=== PATIENT | female | born 1960 | race Hispanic/Latino ===

== ENCOUNTER 2017-05-01 12:41 | Emergency (ER) | payer OTHER ==
[~2017-05-01] VITALS: Ht 149.9 cm; Wt 86.2 kg
[~2017-05-01 12:41] MED LIST: ATENOLOL50 MG PO; CLINDAMYCIN HC300 MG PO; ESTRADIOL PO; GABAPENTIN300 MG PO; LISINOPRIL-HCT1 EAC2 PO; NEXIUM40 MG PO; REMICADE100 MG/VIA IV; TYLENOL # 31 EA PO
[2017-05-01 13:53] LABS: BASOPHILS # (AUTO) 0.1 (0.0-0.1); BASOPHILS % 0.9 % (0.0-1.0); EOSINOPHILS # (AUTO) 0.3 (0.0-0.4); EOSINOPHILS % 4.2 % (0.0-6.0); HEMATOCRIT 40.9 % (34.2-44.1); HEMOGLOBIN 14.2 g/dL (12.0-16.0); LYMPHOCYTES # (AUTO) 2.3 (1.0-3.2); LYMPHOCYTES % 33.6 % (18.0-39.1); MEAN CORPUSCULAR HEMOGLOBIN 29.8 pg (28-32); MEAN CORPUSCULAR HGB CONC 34.7 g/dL (31-35); MEAN CORPUSCULAR VOLUME 85.9 fL (81-99); MONOCYTES # (AUTO) 0.7 (0.2-0.8); MONOCYTES % 10.2 % (4.4-11.3); NEUTROPHILS # (AUTO) 3.5 (2.1-6.9); PLATELET COUNT 243 x10e3/uL (140-360); RED BLOOD COUNT 4.76 x10e6/uL (3.6-5.1); RED CELL DISTRIBUTION WIDTH 12.7 % (11.7-14.4)
[2017-05-01 14:04] LABS: INR 1.04; PARTIAL THROMBOPLASTIN TIME 31.6 seconds (23.8-35.5); PROTHROMBIN TIME 12.8 seconds (11.9-14.5)
[2017-05-01 14:13] LABS: ALANINE AMINOTRANSFERASE 71 IU/L (0-55); ALBUMIN 3.5 g/dL (3.5-5.0); ALBUMIN/GLOBULIN RATIO 0.9 (0.8-2.0); ALKALINE PHOSPHATASE 78 IU/L (40-150); ANION GAP 14.7 mmol/L (8-16); BLOOD UREA NITROGEN 14 mg/dL (7-26); BUN/CREATININE RATIO 18 (6-25); CALCIUM 9.5 mg/dL (8.4-10.2); CARBON DIOXIDE 28 mmol/L (22-29); CHLORIDE 103 mmol/L (98-107); CREATINE KINASE 68 IU/L (29-168); CREATININE, SERUM 0.76 mg/dL (0.57-1.11); EST GLOMERULAR FILTRATION RATE > 60 ML/MIN (60-); GLUCOSE 123 mg/dL (74-118); POTASSIUM 3.7 mmol/L (3.5-5.1); SODIUM 142 mmol/L (136-145)
--- NOTE | 2017-05-01 15:29 | Diagnostic Imaging Report ---
PROCEDURE: Frontal and lateral views of the chest. COMPARISON: None. INDICATIONS: CHEST PAIN FINDINGS: Lines/tubes: None. Lungs: The lungs are well inflated and clear. There is no evidence of pneumonia or pulmonary edema. Pleura: There is no pleural effusion or pneumothorax. Heart and mediastinum: Enlarged cardiac silhouette. Pulmonary vasculature is normal. Bones: No acute bony abnormality. IMPRESSION: 1. enlarged cardiac silhouette, without acute cardiopulmonary disease. Jf Farrell M.D. Dictated by: Jf Farrell M.D. on 05/01/2017 at 15:29 Electronically approved by: Jf Farrell M.D. on 05/01/2017 at 15:29
[2017-05-01 16:36] VITALS: BP 136/69
== END 2017-05-01 16:50 | disposition home or self-care (01) ==
LOC: ER 12:41
DX: R07.89 Other chest pain (principal); I51.7 Cardiomegaly
CPT/HCPCS: 36415; 71046; 80053; 82550; 82553; 84484; 85025; 85610; 85730; 99284

== ENCOUNTER 2017-08-20 20:05 | Emergency (ER) | payer OTHER ==
[~2017-08-20] VITALS: Ht 144.8 cm; Wt 84.4 kg
[2017-08-20 20:40] LABS: BASOPHILS # (AUTO) 0.1 (0.0-0.1); BASOPHILS % 0.5 % (0.0-1.0); EOSINOPHILS # (AUTO) 0.2 (0.0-0.4); EOSINOPHILS % 1.4 % (0.0-6.0); HEMATOCRIT 43.6 % (34.2-44.1); HEMOGLOBIN 15.1 g/dL (12.0-16.0); LYMPHOCYTES # (AUTO) 2.7 (1.0-3.2); LYMPHOCYTES % 24.5 % (18.0-39.1); MEAN CORPUSCULAR HEMOGLOBIN 29.8 pg (28-32); MEAN CORPUSCULAR HGB CONC 34.6 g/dL (31-35); MEAN CORPUSCULAR VOLUME 86.2 fL (81-99); MONOCYTES % 8.9 % (4.4-11.3); NEUTROPHILS % 64.2 % (38.7-80.0); PLATELET COUNT 237 x10e3/uL (140-360); RED BLOOD COUNT 5.06 x10e6/uL (3.6-5.1); RED CELL DISTRIBUTION WIDTH 13.5 % (11.7-14.4)
[2017-08-20 20:42] LABS: BILIRUBIN,URINE NEGATIVE (NEGATIVE); CLARITY,URINE CLEAR (CLEAR); COLOR,URINE YELLOW (YELLOW); KETONES,URINE NEGATIVE (NEGATIVE); LEUKOCYTE ESTERASE ,URINE NEGATIVE (NEGATIVE); NITRITE,URINE NEGATIVE (NEGATIVE); PROTEIN,URINE DIPSTICK NEGATIVE (NEGATIVE); URINE UROBILINOGEN 0.2 mg/dL (0.2 - 1)
[2017-08-20 20:47] LABS: EPITHELIAL CELLS,URINE FEW /LPF; MUCUS,URINE FEW (RARE); RBC,URINE 0-5 /HPF (0-5); WBC,URINE (MAN) 0-5 /HPF (0-5)
[2017-08-20 20:51] LABS: INR 0.97; PROTHROMBIN TIME 12.1 seconds (11.9-14.5)
[2017-08-20 20:52] LABS: PARTIAL THROMBOPLASTIN TIME 29.6 seconds (23.8-35.5)
[2017-08-20 20:59] LABS: ALANINE AMINOTRANSFERASE 61 IU/L (0-55); ALBUMIN 3.6 g/dL (3.5-5.0); ALKALINE PHOSPHATASE 95 IU/L (40-150); ANION GAP 15.1 mmol/L (8-16); BLOOD UREA NITROGEN 26 mg/dL (7-26); BUN/CREATININE RATIO 30 (6-25); CALCIUM 9.5 mg/dL (8.4-10.2); CARBON DIOXIDE 26 mmol/L (22-29); CHLORIDE 103 mmol/L (98-107); CREATINE KINASE 54 IU/L (29-168); CREATININE, SERUM 0.88 mg/dL (0.57-1.11); EST GLOMERULAR FILTRATION RATE > 60 ML/MIN (60-); GLUCOSE 111 mg/dL (74-118); MAGNESIUM 2.5 MG/DL (1.3-2.1); POTASSIUM 4.1 mmol/L (3.5-5.1); SODIUM 140 mmol/L (136-145)
[2017-08-20 21:18] LABS: THYROID STIMULATING HORMONE 2.527 uIU/mL (0.350-4.940)
--- NOTE | 2017-08-20 21:47 | Diagnostic Imaging Report ---
CHEST 2 VIEWS, Technique: CHEST 2 VIEWS Comparison: 05/01/2017 Clinical history: Palpitations DISCUSSION: Heart/mediastinum: Stable mildly enlarged cardiac silhouette and markedly tortuous or ectatic descending thoracic aorta. Lungs/pleural spaces: Central vascular congestion without overt edema. No consolidation, pleural effusion or pneumothorax. IMPRESSION: No significant interval change. Signed by: Dr Nayeli Lin MD on 08/20/2017 9:44 PM
[2017-08-20 22:36] VITALS: BP 153/75
== END 2017-08-20 22:45 | disposition home or self-care (01) ==
LOC: ER 20:05
DX: R00.2 Palpitations (principal)
CPT/HCPCS: 36415; 71046; 80053; 81001; 82550; 82553; 83735; 84443; 84484; 85025; 85610; 85730; 93005; 99284

== ENCOUNTER 2017-09-26 21:50 | Emergency (ER) | payer OTHER ==
[~2017-09-26] VITALS: Ht 144.8 cm; Wt 84.4 kg
[2017-09-26] MEDS ORDERED: KETOROLAC TROMETHAMINE 30 MG/ML VIAL IV STA (22:02)
--- NOTE | 2017-09-26 23:18 | Diagnostic Imaging Report ---
EXAMINATION: RIBS UNILAT W/CXR INDICATION: ] Pain. COMPARISON: None FINDINGS: TUBES and LINES: None. LUNGS: Lungs are well inflated. Lungs are clear. There is no evidence of pneumonia or pulmonary edema. PLEURA: No pleural effusion or pneumothorax. HEART AND MEDIASTINUM: The cardiomediastinal silhouette is unremarkable. BONES AND SOFT TISSUES: No acute osseous lesion. Soft tissues are unremarkable. UPPER ABDOMEN: No free air under the diaphragm. IMPRESSION: No acute thoracic abnormality. No evidence of rib fractures. Signed by: Dr. Antoine Childers M.D. on 09/26/2017 11:14 PM
[2017-09-26 23:50] LABS: BASOPHILS # (AUTO) 0.1 (0.0-0.1); BASOPHILS % 0.6 % (0.0-1.0); EOSINOPHILS # (AUTO) 0.2 (0.0-0.4); EOSINOPHILS % 1.6 % (0.0-6.0); HEMATOCRIT 42.3 % (34.2-44.1); HEMOGLOBIN 14.5 g/dL (12.0-16.0); LYMPHOCYTES # (AUTO) 2.7 (1.0-3.2); LYMPHOCYTES % 27.2 % (18.0-39.1); MEAN CORPUSCULAR HEMOGLOBIN 30.6 pg (28-32); MEAN CORPUSCULAR HGB CONC 34.3 g/dL (31-35); MEAN CORPUSCULAR VOLUME 89.2 fL (81-99); MONOCYTES # (AUTO) 0.9 (0.2-0.8); MONOCYTES % 8.8 % (4.4-11.3); NEUTROPHILS % 61.4 % (38.7-80.0); PLATELET COUNT 210 x10e3/uL (140-360); RED BLOOD COUNT 4.74 x10e6/uL (3.6-5.1)
[2017-09-27 00:09] LABS: ALANINE AMINOTRANSFERASE 41 IU/L (0-55); ALBUMIN 3.1 g/dL (3.5-5.0); ALBUMIN/GLOBULIN RATIO 0.9 (0.8-2.0); ALKALINE PHOSPHATASE 96 IU/L (40-150); ANION GAP 13.5 mmol/L (8-16); BLOOD UREA NITROGEN 21 mg/dL (7-26); BUN/CREATININE RATIO 27 (6-25); CALCIUM 9.2 mg/dL (8.4-10.2); CARBON DIOXIDE 27 mmol/L (22-29); CHLORIDE 102 mmol/L (98-107); CREATINE KINASE 36 IU/L (29-168); CREATININE, SERUM 0.78 mg/dL (0.57-1.11); EST GLOMERULAR FILTRATION RATE > 60 ML/MIN (60-); GLUCOSE 104 mg/dL (74-118); POTASSIUM 3.5 mmol/L (3.5-5.1); SODIUM 139 mmol/L (136-145)
[2017-09-27 00:37] VITALS: BP 160/105
== END 2017-09-27 00:41 | disposition home or self-care (01) ==
LOC: ER 21:50
DX: R07.89 Other chest pain (principal); I10 Essential (primary) hypertension; E78.5 Hyperlipidemia, unspecified; K21.9 Gastro-esophageal reflux disease without esophagitis; G89.29 Other chronic pain; F17.210 Nicotine dependence, cigarettes, uncomplicated
CPT/HCPCS: 36415; 71101; 80053; 82550; 82553; 84484; 85025; 85379; 93005; 99284; J1885

== ENCOUNTER 2018-07-14 21:31 | Observation (INO) | payer OTHER ==
[~2018-07-14] VITALS: Ht 147.3 cm; Wt 84.8 kg
--- OUTSIDE RECORDS SUMMARY | 2018-07-14 21:33 | XMS REPORT | Clinical Summary ---
Author Author [facility] Organization [facility] Address Unknown Phone Unavailable Care Team Providers Care Master Dyer Name Role Phone Brooke Muse MD PCP Allergies Comments Active Allergy Reactions Severity Noted Date Acetaminophen-Codeine GI Low 12/15/2017 Intolerance Medications End Date Status Medication Sig Dispensed Refills Start Date Active metFORMIN (GLUCOPHAGE) Take 500 mg 0 500 mg tablet by mouth 2 (two) times a day with meals. Active lisinopril-hydrochlorothi Take 1 tablet 0 azide by mouth (PRINZIDE,ZESTORETIC) daily. 20-12.5 mg per tablet Active folic acid (FOLVITE) 1 MG Take 1 mg by 0 tablet mouth daily. Active leflunomide (ARAVA) 10 MG Take 10 mg by 0 tablet mouth daily. Active pravastatin (PRAVACHOL) Take 40 mg by 0 40 MG tablet mouth daily. Active isosorbide dinitrate Take 15 mg by 0 (ISORDIL) 30 MG tablet mouth daily. Active ezetimibe (ZETIA) 10 mg Take 10 mg by 0 tablet mouth daily. Active pantoprazole (PROTONIX) Take 40 mg by 0 40 MG EC tablet mouth daily. Active propranolol (INDERAL) 80 Take 80 mg by 0 MG tablet mouth daily. 12/16/2017 Discontinued lisinopril-hydrochlorothi Take 1 tablet 0 azide by mouth (PRINZIDE,ZESTORETIC) nightly. 20-25 mg per tablet 12/16/2017 Discontinued metoprolol tartrate Take 25 mg by 0 (LOPRESSOR) 25 mg tablet mouth daily. 01/15/2018 metoprolol tartrate Take 0.5 30 tablet 0 (LOPRESSOR) 25 mg tablet tablets (12.5 8 mg total) by mouth 2 (two) times a day for 30 days. 01/16/2018 aspirin (ECOTRIN) 81 MG Take 1 tablet 30 tablet 0 enteric coated tablet (81 mg total) 8 by mouth daily for 30 days. Active Problems Problem Noted Date CAD (coronary artery disease) 12/15/2017 Encounters Care Team Description Date Type Specialty Cece Naidu MD Cv left heart cath w lv gram cors [12292 (CPT)] 12/15/2017 Surgery Procedural Cardiology Cece Naidu MD Preop testing 12/15/2017 Hospital Radiology Encounter Cece Naidu MD Al-Lahiq, Maha, MD Coronary artery disease involving [place] heart with angina pectoris, unspecified vessel or lesion type (HCC) (Primary Dx) 12/15/2017 Hospital Intensive Care - Encounter 12/16/2017 after 07/13/2017 Family History Medical History Relation Name Comments Heart disease Father Hyperlipidemia Father Hypertension Father Heart disease Mother Hyperlipidemia Mother Hypertension Mother Relation Name Status Comments Father Mother Social History Date Tobacco Use Types Packs/Day Years Used Current Every Day Smoker Cigarettes 0.5 35 Smokeless Tobacco: Never Used Tobacco Cessation: Ready to Quit: No; Counseling Given: Yes Alcohol Use Drinks/Week oz/Week Comments No Sex Assigned at Date Recorded Not on file Industry Job Start Date Occupation Not on file Not on file Not on file Travel End Travel History Travel Start No recent travel history available. Last Filed Vital Signs Time Taken Vital Sign Reading 12/16/2017 8:27 AM HEALTH PLAN MANAGER Blood Pressure 146/65 12/16/2017 8:27 AM HEALTH PLAN MANAGER Pulse 68 12/16/2017 4:00 AM HEALTH PLAN MANAGER Temperature 37.1 C (98.8 F) 12/16/2017 8:00 AM HEALTH PLAN MANAGER Respiratory Rate 19 12/16/2017 8:00 AM HEALTH PLAN MANAGER Oxygen Saturation 99% - Inhaled Oxygen - Concentration 12/15/2017 5:45 PM HEALTH PLAN MANAGER Weight 86.2 kg (190 lb) 12/15/2017 5:45 PM HEALTH PLAN MANAGER Height 147.3 cm (4' 10") 12/15/2017 5:45 PM HEALTH PLAN MANAGER Body Mass Index 39.71 Plan of Treatment Health Maintenance Due Date Last Done Comments BREAST CANCER SCREENING 2012 COLON CANCER SCREENING 2012 SHINGLES VACCINES (#1) 2012 INFLUENZA VACCINE 09/10/2018 Procedures Comments Procedure Name Priority Date/Time Associated Diagnosis CV SELECTIVE CORONARY Routine 12/15/2017 ANGIOGRAPHY 2:20 PM HEALTH PLAN MANAGER PARTIAL THROMBOPLASTIN STAT 12/15/2017 TIME (PTT) 11:26 AM HEALTH PLAN MANAGER PROTHROMBIN TIME WITH INR STAT 12/15/2017 11:26 AM HEALTH PLAN MANAGER XR CHEST 2 VW Routine 12/15/2017 Preop testing 10:55 AM HEALTH PLAN MANAGER ECG PRE/POST OP STAT 12/15/2017 10:41 AM HEALTH PLAN MANAGER ESTIMATED GFR STAT 12/15/2017 10:40 AM HEALTH PLAN MANAGER BASIC METABOLIC PANEL STAT 12/15/2017 10:40 AM HEALTH PLAN MANAGER HC COMPLETE BLD COUNT STAT 12/15/2017 W/AUTO DIFF 10:40 AM HEALTH PLAN MANAGER after 07/13/2017 Results * Cv labeler procedure (12/15/2017 2:20 PM HEALTH PLAN MANAGER) Specimen Narrative Performed At [facility] CARDIAC CATHETERIZATION NOTE INDICATION: 1.Chest pain. 2.Abnormal myocardial perfusion scan. PROCEDURES PERFORMED: 1.Left heart catheterization with coronary angiogram. 2.Moderate sedation. DESCRIPTION OF THE PROCEDURE: After obtaining informed consent, both the groins were prepped and draped in sterile fashion technique.Radial artery also was accessed using Jaime test. Initially, we started the accessing the right radial artery using 5 and 6-Thai slender sheath.The patient was very sensitive in the skin with each movement into the manipulation of the catheter to the right radial wrist.She was complaining of pain.We went with the [place]ess 4.0 catheter, it was not adequate to visualize in the left main.Then, we tried a JL4.0 catheter.For the right, we used [place] as well as the JR4.0.Finally, given her sensitivity, we decided to switch to a femoral approach.Next, we started with the right common femoral artery after lidocaine injection.Then, we used 18 ____ needle.Then, we went with a 5-Thai sheath.We went then with a JL5.0 catheter.The left main was cannulated.Multiple views were obtained.For the right, we used a 3DRC catheter.The right coronary artery was small, but cannulated. FINDINGS: 1.Left main has luminal irregularity, divides to LAD, ramus and circumflex. 2.The LAD has a mid 40% stenosis.The rest of the LAD has luminal irregularities. 3.Ramus has luminal irregularities. 4.Circumflex gives rise to an obtuse marginal. 5.Before giving rise to obtuse marginal mid also has 40% stenosis. 6.The RCA is right dominant, has rxqw-br-nqqmgpud atherosclerosis and then in the distal has a 50% long stenosis.The RCA gives rise to PDA and PLV, both of them have luminal irregularities, so small, and the PDA seems to be small and with luminal irregularities. CONCLUSIONS: 1.Moderate atherosclerosis in the distal RCA, circumflex and LAD. 2.Mildly elevated left ventricular end-diastolic pressure 19. 3.No gradient across the aortic valve. RECOMMENDATIONS: 1.We will continue guideline-directed medical therapy. 2.Hemostasis will be obtained using manual pressure. Thank you for allowing me to participate in the care of this patient. Performing Organization Address [facility] Phone Number [facility] [address] [place] [address] * Partial thromboplastin time, activated (12/15/2017 11:26 AM HEALTH PLAN MANAGER) PTT 33.7 23.0 - 36.0 sec [facility] Comment: DEPARTMENT OF PTT therapeutic range for PATHOLOGY AND unfractionated heparin is GENOMIC 61.0-112.0 seconds which MEDICINE corresponds to Anti-Xa 0.3-0.7 U/ml. Specimen Blood Performing Organization Address [facility] Phone Number [address] [place] [address] PATHOLOGY AND GENOMIC MEDICINE * Prothrombin time with INR (12/15/2017 11:26 AM HEALTH PLAN MANAGER) Prothrombin 12.6 11.5 - 14.5 sec [facility] time DEPARTMENT OF PATHOLOGY AND GENOMIC MEDICINE INR 1.0 [facility] Comment: DEPARTMENT OF The International Normalized PATHOLOGY AND Ratio (INR) is a therapeutic GENOMIC monitoring tool for patients MEDICINE who are stable on oral anticoagulant therapy. An INR of 2.0-3.0 is suggested for deep vein thrombosis/pulmonary embolism. Specimen Blood Performing Organization Address [facility] Phone Number [facility] DEPARTMENT [address] [place] [address] PATHOLOGY AND GENOMIC MEDICINE * XR Chest 2 Vw (12/15/2017 10:55 AM HEALTH PLAN MANAGER) Specimen Narrative Performed At EXAMINATION:XR CHEST 2 VW [facility] CLINICAL HISTORY:Z01.818 Encounter for other preprocedural examination, preop COMPARISON:None. IMPRESSION: 1.Lungs are clear. 2.Mediastinal contours and cardiac silhouette are unremarkable. 3.No acute osseous abnormality. [id number] Procedure Note Hm Interface, Radiology Results Incoming - 12/15/2017 10:59 AM HEALTH PLAN MANAGER EXAMINATION: XR CHEST 2 VW CLINICAL HISTORY: Z01.818 Encounter for other preprocedural examination, preop COMPARISON: None. IMPRESSION: 1. Lungs are clear. 2. Mediastinal contours and cardiac silhouette are unremarkable. 3. No acute osseous abnormality. [id number] Performing Organization Address [facility] Phone Number [facility] [address] [place] [address] * ECG Pre/Post Op (12/15/2017 10:41 AM HEALTH PLAN MANAGER) Ventricular 59 [facility] rate Atrial rate 59 [facility] MN interval 146 [facility] QRSD interval 88 [facility] QT interval 444 [facility] QTC interval 439 [facility] P axis 1 14 [facility] QRS axis 1 -22 [facility] T wave axis 42 [facility] EKG impression Sinus bradycardia-Otherwise [facility] normal ECG-No previous ECGs available- Specimen Performing Organization Address [facility] Phone Number [facility] MUSE [address] [place] [address] * Estimated GFR (12/15/2017 10:40 AM HEALTH PLAN MANAGER) Estimated GFR >=90 mL/min/1.73 m2 [facility] Comment: DEPARTMENT OF C[employer]goryUnitsInte PATHOLOGY AND rpretation GENOMIC G1 MEDICINE >=90 Normal or high G2 60-89Mildly decreased E1h95-75 Mildly to moderately decreased O3t65-96 Moderately to severely decreased G4 15-29Severely decreased G5 <15Kidney failure The eGFR was calculated using the Chronic Kidney Disease Epidemiology Collaboration (CKD-EPI) equation. Interpretation is based on recommendations of the National Kidney Foundation-Kidney Disease Outcomes Quality Initiative (NKF-KDOQI) published in 2014. Specimen Plasma specimen Performing Organization Address City/[facility]/Zipcode Phone Number [facility] [address] [address] [phone] PATHOLOGY [facility] * CBC with platelet and differential (12/15/2017 10:40 AM HEALTH PLAN MANAGER) WBC 7.19 4.50 - 11.00 k/uL [facility] DEPARTMENT OF PATHOLOGY AND GENOMIC MEDICINE RBC 4.95 4.20 - 5.50 m/uL [facility] OF PATHOLOGY AND GENOMIC MEDICINE HGB 15.1 12.0 - 16.0 g/dL [facility] DEPARTMENT OF PATHOLOGY AND GENOMIC MEDICINE HCT 44.2 37.0 - 47.0 % [facility] DEPARTMENT OF PATHOLOGY AND GENOMIC MEDICINE MCV 89.3 82.0 - 100.0 fL [facility] DEPARTMENT OF PATHOLOGY AND GENOMIC MEDICINE MCH 30.5 27.0 - 34.0 pg [facility] DEPARTMENT OF PATHOLOGY AND GENOMIC MEDICINE MCHC 34.2 31.0 - 37.0 g/dL [facility] DEPARTMENT OF PATHOLOGY AND GENOMIC MEDICINE RDW - SD 43.0 37.0 - 55.0 fL [facility] DEPARTMENT OF PATHOLOGY AND GENOMIC MEDICINE MPV 11.7 8.8 - 13.2 fL [facility] DEPARTMENT OF PATHOLOGY AND GENOMIC MEDICINE Platelet count 223 150 - 400 k/uL [facility] DEPARTMENT OF PATHOLOGY AND GENOMIC MEDICINE Nucleated RBC 0.00 /100 WBC [facility] DEPARTMENT OF PATHOLOGY AND GENOMIC MEDICINE Neutrophils 55.2 39.0 - 69.0 % [facility] DEPARTMENT OF PATHOLOGY AND GENOMIC MEDICINE Lymphocytes 32.1 25.0 - 45.0 % [facility] DEPARTMENT OF PATHOLOGY AND GENOMIC MEDICINE Monocytes 7.9 0.0 - 10.0 % [facility] DEPARTMENT OF PATHOLOGY AND GENOMIC MEDICINE Eosinophils 3.5 0.0 - 5.0 % [facility] DEPARTMENT OF PATHOLOGY AND GENOMIC MEDICINE Basophils 1.0 0.0 - 1.0 % [facility] DEPARTMENT OF PATHOLOGY AND GENOMIC MEDICINE Specimen Blood Performing Organization Address City/[facility]/Zipcode Phone Number [place] [address] [place] [address] PATHOLOGY AND [facility] * Basic metabolic panel (12/15/2017 10:40 AM HEALTH PLAN MANAGER) Pathologist [facility] Sodium 141 135 - 148 mEq/L [facility] DEPARTMENT OF PATHOLOGY AND GENOMIC MEDICINE Potassium 4.4 3.5 - 5.0 mEq/L [facility] DEPARTMENT OF PATHOLOGY AND GENOMIC MEDICINE Chloride 102 98 - 112 mEq/L [facility] DEPARTMENT OF PATHOLOGY AND GENOMIC MEDICINE CO2 28 24 - 31 mEq/L [facility] DEPARTMENT OF PATHOLOGY AND GENOMIC MEDICINE Anion gap 11@ANIO 7 - 15 mEq/L [facility] DEPARTMENT OF PATHOLOGY AND GENOMIC MEDICINE BUN 14 6 - 20 mg/dL [facility] DEPARTMENT OF PATHOLOGY AND GENOMIC MEDICINE Creatinine 0.70 0.50 - 0.90 mg/dL [facility] DEPARTMENT OF PATHOLOGY AND GENOMIC MEDICINE Glucose 109 (H) 65 - 99 mg/dL [facility] DEPARTMENT OF PATHOLOGY AND GENOMIC MEDICINE Calcium 9.9 8.3 - 10.2 mg/dL [facility] DEPARTMENT OF PATHOLOGY AND GENOMIC MEDICINE Specimen Plasma specimen Performing Organization Address City/State/Zipcode Phone Number [facility] [place] [address] [place] [address] PATHOLOGY AND GENOMIC MEDICINE after 07/13/2017 Insurance Type Payer Benefit Subscriber ID Effective Phone Address Plan / Dates Group HMO [employer] MEDICAID [employer] xxxxxxxxx 2008- COMM STAR+ Present [place] Advance Directives Patient has advance care planning documents on file. For more information, xuan manzano contact: Geovany Gutierrez [address] [facility] [place] [address]
[2018-07-14] MEDS ORDERED: ASPIRIN 81 MG CHEW TAB PO ONE (22:15)
[2018-07-14 22:39] LABS: BASOPHILS # (AUTO) 0.1 (0.0-0.1); EOSINOPHILS # (AUTO) 0.3 (0.0-0.4); EOSINOPHILS % 3.6 % (0.0-6.0); HEMOGLOBIN 14.7 g/dL (12.0-16.0); LYMPHOCYTES # (AUTO) 2.4 (1.0-3.2); LYMPHOCYTES % 34.1 % (18.0-39.1); MEAN CORPUSCULAR HEMOGLOBIN 31.1 pg (28-32); MEAN CORPUSCULAR VOLUME 88.8 fL (81-99); MONOCYTES # (AUTO) 0.8 (0.2-0.8); MONOCYTES % 10.8 % (4.4-11.3); NEUTROPHILS # (AUTO) 3.5 (2.1-6.9); NEUTROPHILS % 50.2 % (38.7-80.0); PLATELET COUNT 185 x10e3/uL (140-360); RED BLOOD COUNT 4.73 x10e6/uL (3.6-5.1); RED CELL DISTRIBUTION WIDTH 13.2 % (11.7-14.4)
[2018-07-14 22:53] LABS: BILIRUBIN,URINE NEGATIVE (NEGATIVE); CLARITY,URINE CLOUDY (CLEAR); COLOR,URINE YELLOW (YELLOW); KETONES,URINE NEGATIVE (NEGATIVE); LEUKOCYTE ESTERASE ,URINE TRACE (NEGATIVE); NITRITE,URINE NEGATIVE (NEGATIVE); PROTEIN,URINE DIPSTICK NEGATIVE (NEGATIVE); URINE UROBILINOGEN 0.2 mg/dL (0.2 - 1)
[2018-07-14 23:09] LABS: ALANINE AMINOTRANSFERASE 96 IU/L (0-55); ALBUMIN 3.6 g/dL (3.5-5.0); ALKALINE PHOSPHATASE 123 IU/L (40-150); ANION GAP 14.6 mmol/L (8-16); BLOOD UREA NITROGEN 13 mg/dL (7-26); BUN/CREATININE RATIO 15 (6-25); CALCIUM 9.6 mg/dL (8.4-10.2); CARBON DIOXIDE 25 mmol/L (22-29); CHLORIDE 103 mmol/L (98-107); CREATINE KINASE 103 IU/L (29-168); CREATININE, SERUM 0.85 mg/dL (0.57-1.11); EST GLOMERULAR FILTRATION RATE > 60 ML/MIN (60-); GLUCOSE 91 mg/dL (74-118); POTASSIUM 3.6 mmol/L (3.5-5.1); SODIUM 139 mmol/L (136-145)
[2018-07-14 23:11] LABS: BACTERIA,URINE FEW /HPF; EPITHELIAL CELLS,URINE FEW /LPF; RBC,URINE 0-5 /HPF (0-5)
--- NOTE | 2018-07-14 23:45 | Diagnostic Imaging Report ---
EXAMINATION: CHEST SINGLE (PORTABLE) INDICATION: ^CHEST PAIN ^[id number] ^2315 ^Y COMPARISON: 09/26/2017 FINDINGS: AP view TUBES and LINES: None. LUNGS: Limited by body habitus and low lung volumes. There is no evidence of pneumonia or pulmonary edema. PLEURA: No pleural effusion or pneumothorax. HEART AND MEDIASTINUM: The cardiomediastinal silhouette is enlarged. BONES AND SOFT TISSUES: No acute osseous lesion. Soft tissues are unremarkable. UPPER ABDOMEN: No free air under the diaphragm. IMPRESSION: No acute thoracic abnormality. Enlarged cardiomediastinal silhouette on this AP view. Signed by: Dr. Yusef Shea MD on 07/14/2018 11:42 PM
[2018-07-15] VITALS (7 sets, daily range): BP systolic 133–165; BP diastolic 70–82
[2018-07-15] MEDS ORDERED: HYDRALAZINE HCL 20 MG/ML VIAL IV PRN (00:45)
[2018-07-15] MEDS ORDERED: SODIUM CHLORIDE FLUSH 10 ML SYR INJ PRN (00:45)
--- OUTSIDE RECORDS SUMMARY | 2018-07-15 00:58 | XMS REPORT | Clinical Summary ---
Author Author [facility] Address Unknown Phone Unavailable Care Team Providers Care Supervisor Graphite Name Role Phone Brooke Muse MD PCP [...] left heart cath w lv gram cors [[id number] (CPT)] 12/15/2017 Surgery Procedural Cardiology Cece Naidu MD Preop testing 12/15/2017 Hospital Radiology Encounter Cece Naidu MD Al-Lahiq, Maha, MD Coronary artery disease involving [place] heart with angina pectoris, unspecified vessel or lesion type (HCC) (Primary Dx) 12/15/2017 Hospital Intensive Care - Encounter 12/16/2017 after 07/14/2017 Family History Medical History Relation Name Comments [...] Taken Vital Sign Reading 12/16/2017 8:27 AM BUILDING RENTAL SUPERINTENDENT Blood Pressure 146/65 12/16/2017 8:27 AM BUILDING RENTAL SUPERINTENDENT Pulse 68 12/16/2017 4:00 AM BUILDING RENTAL SUPERINTENDENT Temperature 37.1 C (98.8 F) 12/16/2017 8:00 AM BUILDING RENTAL SUPERINTENDENT Respiratory Rate 19 12/16/2017 8:00 AM BUILDING RENTAL SUPERINTENDENT Oxygen Saturation 99% - Inhaled Oxygen - Concentration 12/15/2017 5:45 PM BUILDING RENTAL SUPERINTENDENT Weight 86.2 kg (190 lb) 12/15/2017 5:45 PM BUILDING RENTAL SUPERINTENDENT Height 147.3 cm (4' 10") 12/15/2017 5:45 PM BUILDING RENTAL SUPERINTENDENT Body Mass Index 39.71 Plan of Treatment Health Maintenance Due Date Last Done Comments BREAST CANCER SCREENING 2012 COLON CANCER SCREENING 2012 SHINGLES VACCINES (#1) 2012 INFLUENZA VACCINE 09/10/2018 Procedures Comments Procedure Name Priority Date/Time Associated Diagnosis CV SELECTIVE CORONARY Routine 12/15/2017 ANGIOGRAPHY 2:20 PM BUILDING RENTAL SUPERINTENDENT PARTIAL THROMBOPLASTIN STAT 12/15/2017 TIME (PTT) 11:26 AM BUILDING RENTAL SUPERINTENDENT PROTHROMBIN TIME WITH INR STAT 12/15/2017 11:26 AM BUILDING RENTAL SUPERINTENDENT XR CHEST 2 VW Routine 12/15/2017 Preop testing 10:55 AM BUILDING RENTAL SUPERINTENDENT ECG PRE/POST OP STAT 12/15/2017 10:41 AM BUILDING RENTAL SUPERINTENDENT ESTIMATED GFR STAT 12/15/2017 10:40 AM BUILDING RENTAL SUPERINTENDENT BASIC METABOLIC PANEL STAT 12/15/2017 10:40 AM BUILDING RENTAL SUPERINTENDENT HC COMPLETE BLD COUNT STAT 12/15/2017 W/AUTO DIFF 10:40 AM BUILDING RENTAL SUPERINTENDENT after 07/14/2017 Results * Cv laborer powerhouse procedure (12/15/2017 2:20 PM BUILDING RENTAL SUPERINTENDENT) Specimen Narrative Performed At [facility] CARDIAC CATHETERIZATION NOTE INDICATION: 1.Chest pain. 2.Abnormal myocardial perfusion scan. PROCEDURES PERFORMED: 1.Left heart catheterization with coronary angiogram. 2.Moderate sedation. DESCRIPTION OF THE PROCEDURE: After obtaining informed consent, both the groins were prepped and draped in sterile fashion technique.Radial artery also was accessed using Jaime test. Initially, we started the accessing the right radial artery using 5 and 6-Persian slender sheath.The patient was very sensitive in the skin with each movement into the manipulation of the catheter to the right radial wrist.She was complaining of pain.We went with the [place] 4.0 catheter, it was not adequate to visualize in the left main.Then, we tried a JL4.0 catheter.For the right, we used [place] as well as the JR4.0.Finally, given her sensitivity, we decided to switch to a femoral approach.Next, we started with the right common femoral artery after lidocaine injection.Then, we used 18 ____ needle.Then, we went with a 5-Persian sheath.We went then with a JL5.0 catheter.The [...] stenosis. 6.The RCA is right dominant, has [id number] atherosclerosis and then in the distal has [...] this patient. Performing Organization Address [facility] Phone Number [facility] [address] [place] [address] * Partial thromboplastin time, activated (12/15/2017 11:26 AM BUILDING RENTAL SUPERINTENDENT) PTT 33.7 23.0 - 36.0 sec [facility] Comment: DEPARTMENT OF PTT therapeutic range for PATHOLOGY AND unfractionated heparin is GENOMIC 61.0-112.0 seconds which MEDICINE corresponds to Anti-Xa 0.3-0.7 U/ml. Specimen Blood Performing Organization Address [facility] Phone Number [address] [place] [address] PATHOLOGY AND GENOMIC MEDICINE * Prothrombin time with INR (12/15/2017 11:26 AM BUILDING RENTAL SUPERINTENDENT) Prothrombin 12.6 11.5 - 14.5 sec [facility] time DEPARTMENT OF PATHOLOGY AND GENOMIC MEDICINE INR 1.0 [facility] Comment: DEPARTMENT OF The International Normalized PATHOLOGY AND Ratio (INR) is a therapeutic GENOMIC monitoring tool for patients MEDICINE who are stable on oral anticoagulant therapy. An INR of 2.0-3.0 is suggested for deep vein thrombosis/pulmonary embolism. Specimen Blood Performing Organization Address [facility] Phone Number [facility] DEPARTMENT [address] [place] [address] PATHOLOGY AND GENOMIC MEDICINE * XR Chest 2 Vw (12/15/2017 10:55 AM BUILDING RENTAL SUPERINTENDENT) Specimen Narrative Performed At EXAMINATION:XR CHEST 2 VW [facility] CLINICAL HISTORY:Z01.818 Encounter for other preprocedural examination, preop COMPARISON:None. IMPRESSION: 1.Lungs are clear. 2.Mediastinal contours and cardiac silhouette are unremarkable. 3.No acute osseous abnormality. [id number] Procedure Note Hm Interface, Radiology Results Incoming - 12/15/2017 10:59 AM BUILDING RENTAL SUPERINTENDENT EXAMINATION: XR CHEST 2 VW CLINICAL HISTORY: Z01.818 Encounter for other preprocedural examination, preop COMPARISON: None. IMPRESSION: 1. Lungs are clear. 2. Mediastinal contours and cardiac silhouette are unremarkable. 3. No acute osseous abnormality. [id number] Performing Organization Address [facility] Phone Number [facility] [address] [place] [address] * ECG Pre/Post Op (12/15/2017 10:41 AM BUILDING RENTAL SUPERINTENDENT) Ventricular 59 [facility] rate Atrial rate 59 [facility] NJ interval 146 [facility] QRSD interval 88 [facility] QT interval 444 [facility] QTC interval 439 [facility] P axis 1 14 [facility] QRS axis 1 -22 [facility] T wave axis 42 [facility] EKG impression Sinus bradycardia-Otherwise [facility] normal ECG-No previous ECGs available- Specimen Performing Organization Address [facility] Phone Number [facility] MUSE [address] [place] [address] * Estimated GFR (12/15/2017 10:40 AM BUILDING RENTAL SUPERINTENDENT) Estimated GFR >=90 mL/min/1.73 m2 [facility] Comment: DEPARTMENT OF CatergoryUnitsInte PATHOLOGY AND rpretation GENOMIC G1 MEDICINE >=90 Normal or high G2 60-89Mildly decreased Q7u05-17 Mildly to moderately decreased [id number] Moderately to severely decreased G4 15-29Severely decreased G5 <15Kidney failure The eGFR was calculated using the Chronic Kidney Disease Epidemiology Collaboration (CKD-EPI) equation. Interpretation is based on recommendations of the National Kidney Foundation-Kidney Disease Outcomes Quality Initiative (NKF-KDOQI) published in 2014. Specimen Plasma specimen Performing Organization Address City/[facility]/Zipcode Phone Number [facility] [address] [place] [place] [id number] PATHOLOGY [facility] * CBC with platelet and differential (12/15/2017 10:40 AM BUILDING RENTAL SUPERINTENDENT) WBC 7.19 4.50 - 11.00 k/uL [facility] DEPARTMENT OF PATHOLOGY AND GENOMIC MEDICINE RBC 4.95 4.20 - 5.50 m/uL [facility] OF PATHOLOGY AND GENOMIC MEDICINE HGB 15.1 12.0 - 16.0 g/dL [facility] DEPARTMENT OF PATHOLOGY AND GENOMIC MEDICINE HCT 44.2 37.0 - 47.0 % [facility] DEPARTMENT OF PATHOLOGY AND GENOMIC MEDICINE MCV 89.3 82.0 - 100.0 fL [facility] DEPARTMENT OF PATHOLOGY AND GENOMIC MEDICINE MCH 30.5 27.0 - 34.0 pg [facility] DEPARTMENT OF PATHOLOGY AND GENOMIC MEDICINE MCHC 34.2 31.0 - 37.0 g/dL [facility] DEPARTMENT OF PATHOLOGY AND GENOMIC MEDICINE RDW - SD 43.0 37.0 - 55.0 fL [facility] DEPARTMENT OF PATHOLOGY AND GENOMIC MEDICINE MPV 11.7 8.8 - 13.2 fL [facility] DEPARTMENT OF PATHOLOGY AND GENOMIC MEDICINE Platelet count 223 150 - 400 k/uL [facility] DEPARTMENT OF PATHOLOGY AND GENOMIC MEDICINE Nucleated RBC 0.00 /100 WBC [facility] DEPARTMENT OF PATHOLOGY AND GENOMIC MEDICINE Neutrophils 55.2 39.0 - 69.0 % [facility] DEPARTMENT OF PATHOLOGY AND GENOMIC MEDICINE Lymphocytes 32.1 25.0 - 45.0 % [facility] DEPARTMENT OF PATHOLOGY AND GENOMIC MEDICINE Monocytes 7.9 0.0 - 10.0 % [facility] DEPARTMENT OF PATHOLOGY AND GENOMIC MEDICINE Eosinophils 3.5 0.0 - 5.0 % [facility] DEPARTMENT OF PATHOLOGY AND GENOMIC MEDICINE Basophils 1.0 0.0 - 1.0 % [facility] DEPARTMENT OF PATHOLOGY AND GENOMIC MEDICINE Specimen Blood Performing Organization Address City/[facility]/Zipcode Phone Number [place] [address] [place] [address] PATHOLOGY AND [facility] * Basic metabolic panel (12/15/2017 10:40 AM BUILDING RENTAL SUPERINTENDENT) Pathologist [facility] Sodium 141 135 - 148 mEq/L [facility] DEPARTMENT OF PATHOLOGY AND GENOMIC MEDICINE Potassium 4.4 3.5 - 5.0 mEq/L [facility] DEPARTMENT OF PATHOLOGY AND GENOMIC MEDICINE Chloride 102 98 - 112 mEq/L [facility] DEPARTMENT OF PATHOLOGY AND GENOMIC MEDICINE CO2 28 24 - 31 mEq/L [facility] DEPARTMENT OF PATHOLOGY AND GENOMIC MEDICINE Anion gap 11@ANIO 7 - 15 mEq/L [facility] DEPARTMENT OF PATHOLOGY AND GENOMIC MEDICINE BUN 14 6 - 20 mg/dL [facility] DEPARTMENT OF PATHOLOGY AND GENOMIC MEDICINE Creatinine 0.70 0.50 - 0.90 mg/dL [facility] DEPARTMENT OF PATHOLOGY AND GENOMIC MEDICINE Glucose 109 (H) 65 - 99 mg/dL [facility] DEPARTMENT OF PATHOLOGY AND GENOMIC MEDICINE Calcium 9.9 8.3 - 10.2 mg/dL [facility] DEPARTMENT OF PATHOLOGY AND GENOMIC MEDICINE Specimen Plasma specimen Performing Organization Address City/State/Zipcode Phone Number [facility] [place] [address] [place] [address] PATHOLOGY AND GENOMIC MEDICINE after 07/14/2017 Insurance Type Payer Benefit Subscriber ID Effective Phone Address Plan / Dates Group HMO [employer] MEDICAID [employer] xxxxxxxxx 2008- COMM STAR+ Present [place]ONT[place] Advance Directives Patient has advance care planning documents on file. For more information, xuan manzano contact: Geovany Gutierrez [address] [place] [address]
[2018-07-15] MEDS ORDERED: FOLIC ACID1 MG PO (05:23)
[2018-07-15] MEDS ORDERED: BUPROPION XL150 MG PO (05:23)
[2018-07-15] MEDS ORDERED: PRAVASTATIN SOD40 MG PO (05:23)
[2018-07-15] MEDS ORDERED: LEFLUNOMIDE10 MG PO (05:23)
[2018-07-15] MEDS ORDERED: VITAMIN D250000 UNIT PO (05:23)
[2018-07-15] MEDS ORDERED: VASCEPA PO (05:23)
[2018-07-15] MEDS ORDERED: PANTOPRAZOLE SO40 MG PO (05:23)
[2018-07-15] MEDS ORDERED: METFORMIN HCL500 MG PO (05:23)
[2018-07-15] MEDS ORDERED: LISINOPRIL10 MG PO (05:23)
[2018-07-15] MEDS ORDERED: LISINOPRIL-HCT1 EAC1 PO (05:23)
[2018-07-15] MEDS ORDERED: TRICOR145 MG PO (05:23)
[2018-07-15] MEDS ORDERED: ATENOLOL25 MG PO (05:23)
[2018-07-15] MEDS ORDERED: ERGOCALCIFEROL 50,000 UNIT CAP PO SCH (05:30)
--- NOTE | 2018-07-15 06:20 | NUR ---
GOT REPORT FROM DOREEN, ER NURSE. PATIENT ARRIVED VIA WHEELCHAIR. PATIENT IS A&OX3. PATIENT AMBULATED FROM WHEELCHAIR TO BED.
[2018-07-15 07:16] LABS: CREATINE KINASE MB 1.6 ng/mL (0-5.0)
--- NOTE | 2018-07-15 07:46 | NUR ---
GAVE REPORT TO ONCOMING NURSE. CALL LIGHT WITHIN REACH. PATIENT IN BED.
[2018-07-15] MEDS: PANTOPRAZOLE SOD 40 MG TABEC PO SCH (08:45)
[2018-07-15] MEDS: OMEGA 3 POLYUNSAT FATTY ACIDS 1000 MG SOFTGEL PO SCH ×2 (08:45→16:34)
[2018-07-15] MEDS: FOLIC ACID 1 MG TAB PO SCH (08:45)
[2018-07-15] MEDS: ATENOLOL 50 MG TAB PO SCH ×2 (08:45→16:35)
[2018-07-15] MEDS: ASPIRIN 81 MG ENTERIC COATED PO SCH (08:45)
[2018-07-15] MEDS: FENOFIBRATE 145 MG TAB PO SCH (08:46)
[2018-07-15] MEDS: LEFLUNOMIDE 10 MG PO SCH (08:47)
[2018-07-15] MEDS ORDERED: METFORMIN HCL 500 MG TAB PO SCH (09:00)
[2018-07-15] MEDS ORDERED: NON-FORMULARY MEDICATION (Atenolol 25 MG) PO SCH (09:00)
[2018-07-15] MEDS ORDERED: NON-FORMULARY MEDICATION (Pravastatin Sodium 40 MG) PO SCH (09:00)
[2018-07-15] MEDS ORDERED: VASCEPA PO SCH (09:00)
[2018-07-15] MEDS: BUPROPION HCL 150 MG TABCR PO SCH (09:00)
[2018-07-15] MEDS ORDERED: LEFLUNOMIDE 10 MG PO SCH ×2 (09:00)
--- NOTE | 2018-07-15 14:00 | NUR ---
Patient is ambulating in room without any complaints voiced.
[2018-07-15] MEDS ORDERED: LISINOPRIL 10 MG TAB PO SCH (17:00)
[2018-07-15 17:08] LABS: CREATINE KINASE MB 1.5 ng/mL (0-5.0)
--- NOTE | 2018-07-15 19:00 | NUR ---
Report given to oncoming shift.
--- NOTE | 2018-07-15 19:26 | NUR ---
Received patient in bed with family at bedside. No resp distress at this time. Denies chest pain. Call light within reach and instructed to call for assistance.
[2018-07-15] MEDS ORDERED: PRAVASTATIN 20 MG TAB PO SCH (21:00)
--- NOTE | 2018-07-15 22:02 | Consultation ---
DATE OF CONSULTATION: 07/15/2018 Cardiology Consultation REASON FOR CONSULTATION: Chest pain symptoms. HISTORY OF PRESENT ILLNESS: Ms. Winetr is a 58-year-old lady with past medical history of hypertension, hyperlipidemia, COPD, smoker, liver disease, chronic back pain, history of rheumatoid arthritis, psoriasis, on DMARD therapy, GERD, amongst other things. She typically is followed by Dr. Crowley at [facility]. She came to this institution after having 2 to 3-day history of progressively worsening chest pain symptoms, malaise, and just not feeling quite right. She reports the chest pain as a tightness in sternal area, moderate in nature without any radiation and initially would last several minutes, but the duration became progressively longer and longer. She came to the emergency for further care and management. Her EKG revealed sinus rhythm and cardiac biomarker is negative thus far. I have been visiting with her, the patient is largely chest-pain free and states that she is feeling okay for the time being. PAST MEDICAL HISTORY: 1. Hypertension, essential. 2. Hyperlipidemia. 3. Liver disease. 4. Chronic back pain. 5. Nonalcoholic steatohepatitis. 6. Rheumatoid arthritis. 7. Psoriatic arthritis. 8. Type 2 diabetes. PAST SURGICAL HISTORY: 1. History of cholecystectomy. 2. History of hysterectomy. FAMILY HISTORY: Mother alive in her 70s, has coronary artery disease. Father at age of 53 from a heart attack. SOCIAL HISTORY: She is one half pack per day smoker. Denies any alcohol or illicit drug use. ALLERGIES: NO KNOWN DRUG ALLERGIES. HOME MEDICATIONS: Include: 1. Atenolol 25 mg b.i.d. 2. Wellbutrin 150 mg daily. 3. Vitamin D tablet daily. 4. TriCor 145 mg daily. 5. Folate 1 mg daily. 6. Leflunomide 10 mg daily. 7. Lisinopril/HCTZ 40/25 mg daily. 8. Metformin 500 mg daily. 9. Protonix 40 mg daily. 10. Pravastatin 40 mg daily. 11. Vascepa 1 mg p.o. b.i.d. REVIEW OF SYSTEMS: GENERAL: Denies any fevers, chills, or any weight changes. HEENT: No headaches, visual complaints, sore throat, stuffy nose. RESPIRATORY: Denies any pleuritic chest pain, shortness of breath, or chest discomfort. Has chronic exertional dyspnea, class II. CARDIOVASCULAR: As per HPI. Denies any subjective palpitations, syncope, or near syncope. GI: Positive for GERD. No bright red blood per rectum, melena, or hematemesis. : Denies any dysuria, pyuria, or change in urinary frequency. MUSCULOSKELETAL: Positive for lower back pain. No leg pains or swelling. ENDOCRINE: Denies any heat or cold intolerance. NEUROLOGIC: Denies any focal weakness, numbness, tingling, seizures, headache, history of TIA, or stroke. SKIN: No rashes. Remainder review of systems negative otherwise not mentioned. PHYSICAL EXAMINATION: VITAL SIGNS: Height 58 inches, weight of 186 pounds, BMI is 38.9. Temperature of 97.1, pulse of 89, respiratory rate 18, blood pressure of 157/70, and O2 saturation 97% on room air. GENERAL: This is a well-nourished, obese lady, who is currently in bed, in no apparent distress. HEENT: Normocephalic, atraumatic. Pupils equal, round, and reactive to light. Extraocular movements are intact. Oropharynx is clear. NECK: No elevation of jugular venous pulsation. No carotid bruits. CARDIOVASCULAR: Regular rate and rhythm. Normal S1, S2. Soft 2/6 systolic murmur along the left sternal border. LUNGS: Good lung expansion and good air entry. No wheezes or crackles. ABDOMEN: Soft, nontender, obese. Normoactive bowel sounds. No hepatosplenomegaly. BACK: No costovertebral angle tenderness. EXTREMITIES: Warm with 1+ radial pulses, 1+ femoral pulses, diminished pedal pulses. NEUROLOGIC: Cranial nerves 2-12 are intact. Strength is 5/5. Grossly nonfocal. PSYCH: Normal fluent speech. Appropriate affect. No anxiety or delusions. LABS: White count 6.95, hemoglobin 14.7, hematocrit 42.0, and platelets of 185. Sodium of 139, potassium 3.6, chloride 103, bicarb 25, BUN 13, creatinine 0.85, glucose of 91, calcium of 9.6, AST 55, ALT 96, alkaline phosphatase 123, total protein 7.1, albumin of 3.6. Troponin went from baseline of 0.006 to 0.008, normal CK and MB. UA shows 6-10 white cells. EKG reveals normal sinus rhythm, normal axis and no ST-T wave changes. DIAGNOSES: 1. Chest pain symptoms in a lady with known cardiovascular risk factors. According to her, she has had previous cardiac catheterization within the past year or so and is followed by Dr. Crowley as her primary otorhinolaryngologist. 2. Hypertension, essential. 3. Type 2 diabetes. 4. Obesity. 5. History of rheumatoid arthritis and psoriasis. 6. Chronic hepatitis from nonalcoholic steatohepatitis and hence not on statin therapy. PLAN/RECOMMENDATIONS: 1. From a cardiovascular standpoint, we had a discussion with the patient in terms of different management options including repeat ischemic re-evaluation with stress test, cardiac catheterization, etc. However, the patient was pretty adamant that she does not want stress testing at this time and rather follow up with Dr. Crowley, her otorhinolaryngologist. 2. For this reason, we will go ahead and cycle cardiac enzymes. Make sure she is on good cardiac medications. 3. We will check echo to evaluate her left ventricular function. 4. We will get in touch with her primary otorhinolaryngologist and see if we can get further information about the heart catheterization. 5. We will continue to follow this patient with you. Thank you for this referral. MD MINERVA Aranda/EB /[id number]
--- NOTE | 2018-07-15 22:07 | History and Physical ---
HISTORY OF PRESENT ILLNESS: Inga Winter is 58-year-old female, past medical history positive for fatty liver, hypertension, diabetes, and hyperlipidemia, came to the hospital with chest pain. EKG was normal. Cardiac enzymes were negative. The patient had a cardiac cath done sometime last year, she thinks around November or December, it was normal apparently. We are going to obtain the records. REVIEW OF SYSTEMS: CARDIOVASCULAR: She had an episode of chest pain, which is resolved. RESPIRATORY: No shortness of breath. No cough. GASTROINTESTINAL: No nausea. No vomiting. No diarrhea. GENITOURINARY: No frequency. No dysuria. ALLERGIES: NOT ALLERGIC TO ANYTHING. SOCIAL HISTORY: She does not smoke. She does not drink. PAST MEDICAL HISTORY: Hypertension, diabetes, hyperlipidemia, gastroesophageal reflux disease, and fatty liver. PHYSICAL EXAMINATION: VITAL SIGNS: Blood pressure is 157/70, temperature 97.1, heart rate 89 per minute, respiratory rate 18 per minute, and oxygen saturation 97%. HEART: Regular rhythm. Normal S1, S2 sound. LUNGS: Clear bilaterally. ABDOMEN: Soft. EXTREMITIES: No evidence of cyanosis or hematoma. LABORATORY STUDIES: Sodium 139, potassium 3.6, chloride 103, CO2 of 25, BUN 13, creatinine 0.85, GFR 60, and glucose 91, last one was 97. Calcium 9.6, total bilirubin 0.6, AST 55, ALT 96, alkaline phosphatase 123, creatine kinase 69 the prior one was 103. Troponin x2 completely normal, 0.006 and the last one was 0.008. Total protein 7.1, albumin 3.6, and globulin 3.5. IMAGING: Chest x-ray normal. No abnormality except for enlarged cardiomediastinal silhouette on this anterior and posterior view. No acute thoracic abnormality. EKG normal also. IMPRESSION: 1. Atypical chest pain. 2. Hypertension. 3. Diabetes mellitus type 2. 4. Hyperlipidemia. 5. Gastroesophageal reflux disease. 6. Fatty liver. PLAN OF TREATMENT: We are going to continue with current medication which include aspirin 81 mg daily, atenolol 25 mg twice a day, bupropion 150 mg daily, vitamin D 50,000 international units once a week, fenofibrate 145 mg daily, folic acid 1 mg daily, hydralazine 10 mg IV q.4 hours as needed, lisinopril 20 mg daily, metformin 500 mg daily, omega-3 fatty acids 1000 mg twice a day, Protonix 40 mg daily, pravastatin 40 mg daily, and leflunomide [address] Barron has been consulted from the Cardiology point of view. If the cardiac enzymes are negative, the patient can go home. She is declining any type of invasive or noninvasive cardiac evaluation. The patient is chest pain free. Troponins are negative x2. EKG is normal. She is going to follow up with her primary piece maker, Dr. Dean in a week if she gets discharge tomorrow. MD BILLIE Real/EB /[id number]
[2018-07-16] VITALS: BP 132/69
[2018-07-16 04:00] VITALS: BP 135/66
[2018-07-16 05:40] LABS: BASOPHILS # (AUTO) 0.1 (0.0-0.1); BASOPHILS % 1.2 % (0.0-1.0); EOSINOPHILS # (AUTO) 0.3 (0.0-0.4); EOSINOPHILS % 5.4 % (0.0-6.0); HEMATOCRIT 41.2 % (34.2-44.1); HEMOGLOBIN 13.9 g/dL (12.0-16.0); LYMPHOCYTES # (AUTO) 2.4 (1.0-3.2); LYMPHOCYTES % 39.6 % (18.0-39.1); MEAN CORPUSCULAR HEMOGLOBIN 30.6 pg (28-32); MEAN CORPUSCULAR HGB CONC 33.7 g/dL (31-35); MEAN CORPUSCULAR VOLUME 90.7 fL (81-99); MONOCYTES # (AUTO) 0.7 (0.2-0.8); MONOCYTES % 11.1 % (4.4-11.3); NEUTROPHILS # (AUTO) 2.5 (2.1-6.9); NEUTROPHILS % 42.4 % (38.7-80.0); PLATELET COUNT 168 x10e3/uL (140-360); RED BLOOD COUNT 4.54 x10e6/uL (3.6-5.1); RED CELL DISTRIBUTION WIDTH 13.3 % (11.7-14.4)
[2018-07-16 06:01] LABS: ALANINE AMINOTRANSFERASE 91 IU/L (0-55); ALBUMIN 3.1 g/dL (3.5-5.0); ALBUMIN/GLOBULIN RATIO 0.9 (0.8-2.0); ALKALINE PHOSPHATASE 118 IU/L (40-150); BLOOD UREA NITROGEN 13 mg/dL (7-26); BUN/CREATININE RATIO 16 (6-25); CALCIUM 9.5 mg/dL (8.4-10.2); CARBON DIOXIDE 27 mmol/L (22-29); CHLORIDE 105 mmol/L (98-107); CHOL/HDL RATIO 4.7 (3.0-3.6); CHOLESTEROL 234 MD/DL (0-199); CREATININE, SERUM 0.79 mg/dL (0.57-1.11); EST GLOMERULAR FILTRATION RATE > 60 ML/MIN (60-); GLUCOSE 100 mg/dL (74-118); HDL CHOLESTEROL 50 MG/DL (40-60); LDL CHOLESTEROL 142 MG/DL (60-130); SODIUM 140 mmol/L (136-145); TRIGLYCERIDES 208 MG/DL (0-149)
[2018-07-16 06:27] LABS: INR 0.87; PROTHROMBIN TIME 12.3 seconds (11.9-14.5)
--- NOTE | 2018-07-16 06:58 | NUR ---
Walking rounds done and report received. Patient is awake, alert and able to make needs known. POC discussed. Patient was instructed to call for assistance and verbalized understanding. Tele #[phone], [email or web address]. Call marrero within reach.
[2018-07-16] MEDS ORDERED: METFORMIN HCL 500 MG TAB PO SCH (08:00)
[2018-07-16 08:24] VITALS: BP 139/76
[2018-07-16] MEDS: LEFLUNOMIDE 10 MG PO SCH (09:00)
[2018-07-16] MEDS: PANTOPRAZOLE SOD 40 MG TABEC PO SCH (09:21)
[2018-07-16] MEDS: OMEGA 3 POLYUNSAT FATTY ACIDS 1000 MG SOFTGEL PO SCH (09:21)
[2018-07-16] MEDS: FOLIC ACID 1 MG TAB PO SCH (09:21)
[2018-07-16] MEDS: FENOFIBRATE 145 MG TAB PO SCH (09:21)
[2018-07-16] MEDS: ATENOLOL 50 MG TAB PO SCH (09:21)
[2018-07-16] MEDS: BUPROPION HCL 150 MG TABCR PO SCH (09:21)
[2018-07-16] MEDS: ASPIRIN 81 MG ENTERIC COATED PO SCH (09:21)
--- NOTE | 2018-07-16 10:00 | NUR ---
Per Donal Stephens NP/Dr. 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
--- NOTE | 2018-07-16 10:30 | NUR ---
Patient discharged home with written instructions. She verbalized understanding. IV dc'd, cath intact and small dressing applied.
[2018-07-16] MEDS ORDERED: LISINOPRIL 20 MG TAB PO SCH (17:00)
[2018-07-17] MEDS ORDERED: ERGOCALCIFEROL 50,000 UNIT CAP PO SCH (09:00)
== END 2018-07-16 10:20 | disposition home or self-care (01) ==
LOC: ER 21:31 → ERHOLD 07-15 00:55 → IMCU 07-15 06:43
PROVIDERS: ADMIT Internal Medicine; ATTEND Internal Medicine
DX: E78.5 Hyperlipidemia, unspecified (principal); R07.89 Other chest pain; E11.9 Type 2 diabetes mellitus without complications; K21.9 Gastro-esophageal reflux disease without esophagitis; K76.0 Fatty (change of) liver, not elsewhere classified; M06.9 Rheumatoid arthritis, unspecified; L40.50 Arthropathic psoriasis, unspecified; G89.29 Other chronic pain; Z90.49 Acquired absence of other specified parts of digestive tract; K75.9 Inflammatory liver disease, unspecified; E66.9 Obesity, unspecified; Z68.39 Body mass index [BMI] 39.0-39.9, adult; Z79.4 Long term (current) use of insulin
CPT/HCPCS: 36415 ×3; 71045; 80053 ×2; 80061; 81001; 82550 ×2; 82553 ×2; 82948 ×2; 83036; 84443; 84484 ×2; 85025 ×2; 85610; 93005; 93306; 99284; G0378 ×2; S0164 ×2

== ENCOUNTER 2019-04-04 13:43 | Emergency (ER) | payer OTHER ==
[~2019-04-04] VITALS: Ht 147.3 cm; Wt 84.8 kg
[~2019-04-04 13:43] MED LIST changes: +ATENOLOL25 MG PO; +BUPROPION XL150 MG PO; +FOLIC ACID1 MG PO; +LEFLUNOMIDE10 MG PO; +LISINOPRIL-HCT1 EAC1 PO; +LISINOPRIL10 MG PO; +METFORMIN HCL500 MG PO; +PANTOPRAZOLE SO40 MG PO; +PRAVASTATIN SOD40 MG PO; +TRICOR145 MG PO; +VASCEPA PO; +VITAMIN D250000 UNIT PO
[2019-04-04] MEDS ORDERED: LIDOCAINE 4% PATCH TP STA (14:32)
[2019-04-04] MEDS ORDERED: ORPHENADRINE CITRATE 30 MG/ML VIAL IM ONE (14:45)
[2019-04-04] MEDS ORDERED: DEXAMETHASONE SOD PHOS 10 MG/1 ML VIAL IM ONE (14:45)
[2019-04-04] MEDS ORDERED: CYCLOBENZAPRINE HCL 10 MG TAB PO ONE (14:45)
[2019-04-04] MEDS ORDERED: KETOROLAC TROMETHAMINE 60 MG/2 ML VIAL IM ONE (14:45)
[2019-04-04] MEDS ORDERED: HYDROCODONE/APAP 7.5MG-325MG 1 EA TAB PO PRN (14:45)
== END 2019-04-04 17:07 | disposition home or self-care (01) ==
LOC: ER 13:43
DX: M54.42 Lumbago with sciatica, left side (principal); I10 Essential (primary) hypertension; E11.9 Type 2 diabetes mellitus without complications
CPT/HCPCS: 99282; J1885; J2360

== ENCOUNTER 2019-08-11 23:11 | Emergency (ER) | payer OTHER ==
[~2019-08-11] VITALS: Ht 147.3 cm; Wt 84.8 kg
--- NOTE | 2019-08-12 00:34 | Emergency Department Note ---
History of Present Illnes History of Present Illness Chief Complaint: Abdominal Complaints History of Present Illness This is a 59 year old female presents to the ED for LLQ abd pain . Arrival Mode: Car Day Ha[employer] Required: No Onset (how long ago): day(s) Radiation: Reports abdomen (LLQ) Severity: moderate Duration (how long): day(s) Timing of current episode: constant Progression: worsening Relieving factors: none Exacerbating factors: none Associated symptoms: Reports denies other symptoms Treatments prior to arrival: none Past Medical/Family History Physician Review I have reviewed the patient's past medical and family history. Any updates have been documented here. Past Medical History Recent Fever: No Clinical Suspicion of Infectio: No New/Unexplained Change in Ment: No Past Medical History: Hypertension, Depression, Osteoarthritis Other Medical History: bORDERLINE DM Past Surgical History: Cholecysctectomy, Hysterectomy, Tubal Ligation, C- Section Other Surgery: CARPAL TUNNEL REPAIR BILATERALLY HEART CATH 12/28, NO STENT Social History Smoking Cessation: Never Smoker Alcohol Use: None Any Illegal Drug Use: No Other Last Tetanus: OOD Review of Systems Review of Systems Constitutional: Reports no symptoms EENTM: Reports no symptoms Cardiovascular: Reports no symptoms Respiratory: Reports no symptoms Gastrointestinal: Reports abdominal pain (LLQ pain) Genitourinary: Reports no symptoms Musculoskeletal: Reports no symptoms Integumentary: Reports no symptoms Neurological: Reports no symptoms Psychological: Reports no symptoms Endocrine: Reports no symptoms Hematological/Lymphatic: Reports no symptoms Physical Exam Related Data Allergies: Coded Allergies: No Known Drug Allergies (Verified Allergy, Unknown, 07/14/18) Vital signs reviewed: Yes Physical Exam CONSTITUTIONAL Constitutional: Present well-developed, Present well-nourished HENT HENT: Present normocephalic, Present atraumatic, Present oropharynx clear /moist, Present nose normal HENT L/R: Present left ext ear normal, Present right ext ear normal EYES Eyes: Reports PERRL, Reports conjunctivae normal NECK Neck: Present ROM normal PULMONARY Pulmonary: Present effort normal, Present breath sounds normal CARDIOVASCULAR Cardiovascular: Present regular rhythm, Present heart sounds normal, Present capillary refill normal, Present normal rate GASTROINTESTINAL Abdominal: Present tender (LLQ pain) GENITOURINARY Genitourinary: Present exam deferred SKIN Skin: Present warm, Present dry MUSCULOSKELETAL Musculoskeletal: Present ROM normal NEUROLOGICAL Neurological: Present alert, Present oriented x 3, Present no gross motor or sensory deficits PSYCHOLOGICAL Psychological: Present mood/affect normal, Present judgement normal Results Laboratory Lab results reviewed: Yes Imaging Imaging results reviewed: Yes Impressions [place] [address] Patient Name: NIGEL WILLSON MR #: [id number] : 1960 Age/Sex: 59/F Req #: [id number] Adm Physician: Ordered by: VIVI MITCHELL DO Report #: [id number] Location: ER Room/Bed: Procedure: [id number] CT/CT ABDOMEN/PELVIS WO Exam Date: 08/12/19 Exam Time: 125 REPORT STATUS: Signed EXAM: CT Abdomen and Pelvis WITHOUT contrast INDICATION: ^LLQ pain ^[id number] ^012 COMPARISON: None. TECHNIQUE: Abdomen and pelvis were scanned utilizing a multidetector helical scanner from the lung base to the pubic symphysis without administration of IV contrast. Absence of intravenous contrast decreases sensitivity for detection of focal lesions and vascular pathology. Coronal and sagittal reformations were obtained. Routine protocol was performed. IV CONTRAST: None ORAL CONTRAST: None COMPLICATIONS: None RADIATION DOSE: Total DLP: 632 mGy*cm Estimated effective dose: (DLP x 0.015 x size factor) mSv CTDIvol has been reviewed. It is below the limits set by the Radiation Protocol Committee (RPC). Dose modulation, iterative reconstruction, and/or weight based adjustment of the mA/kV was utilized to reduce the radiation dose to as low as reasonably achievable. FINDINGS: LINES and TUBES: None. LOWER THORAX: Unremarkable HEPATOBILIARY: No focal hepatic lesions. No biliary ductal dilation. GALLBLADDER: Surgically absent. SPLEEN: No splenomegaly. PANCREAS: No focal masses or ductal dilatation. ADRENALS: No adrenal nodules KIDNEYS/URETERS: No hydronephrosis. No cystic or solid mass lesions. No stones. GI TRACT: Sigmoid diverticulosis. Short segment wall thickening of the proximal sigmoid colon with adjacent mesenteric inflammation. No evidence of bowel obstruction. Appendix is normal. PELVIC ORGANS/BLADDER: The uterus is surgically absent. The urinary bladder is mostly decompressed. LYMPH NODES: No lymphadenopathy. VESSELS: Unremarkable. PERITONEUM / RETROPERITONEUM: No free air or fluid. No drainable fluid collection. BONES: Unremarkable. SOFT TISSUES: Unremarkable. IMPRESSION: Acute uncomplicated sigmoid diverticulitis. Signed by: Marla Guevara MD on 08/12/2019 2:06 AM Dictated By: MARLA GUEVARA MD 5 Transcribed By: LÁZARO on 08/12/19205 COPY TO: VIVI MITCHELL DO~ Assessment & Plan Medical Decision Making MDM 59 yof with LLQ pain. Diff Dx : UTI, pyelonephritis, Diverticulitis, ovary cyst, Cancer Assessment & Plan Final Impression: (1) Diverticulitis Depart Disposition: HOME, SELF-skilled nursing Meds Reported Medications Leflunomide (LEFLUNOMIDE) 10 Mg Tablet, 10 MG PO DAILY 07/15/18 Bupropion Hcl (BUPROPION XL) 150 Mg Tab.er.24h, 150 MG PO DAILY 07/15/18 Fenofibrate (TRICOR) 145 Mg Tab, 145 MG PO DAILY 07/15/18 Pantoprazole Sodium* (PROTONIX) 40 Mg Tablet.dr, 40 MG PO DAILY 07/15/18 Metformin Hcl (METFORMIN HCL) 500 Mg Tablet, 500 MG PO DAILY 07/15/18 Lisinopril/Hydrochlorothiazide (LISINOPRIL-HCTZ 20-25 MG TAB) 1 Each Tablet, PO DAILY 07/15/18 Pravastatin Sodium (PRAVASTATIN SODIUM) 40 Mg Tablet, 40 MG PO DAILY 07/15/18 Atenolol (ATENOLOL) 25 Mg Tablet, 25 MG PO BID 07/15/18 Lisinopril (LISINOPRIL) 10 Mg Tablet, 20 MG PO DAILY@1700, #30 TAB 07/15/18 [Vascepa] No Conflict Check, 1 MG PO BID 07/15/18 Ergocalciferol (Vitamin D2) (VITAMIN D2) 50,000 Unit Capsule, 89356 UNITS PO UD TAKE ONE CAPSULE BY MOUTH ONE TIME PER WEEK. 07/15/18 Folic Acid (FOLIC ACID) 1 Mg Tablet, 1 MG PO DAILY 07/15/18 VIVI MITCHELL DO Aug 12, 2019 00:34
[2019-08-12] MEDS ORDERED: KETOROLAC TROMETHAMINE 60 MG/2 ML VIAL IM ONE (00:45)
[2019-08-12] MEDS ORDERED: DIATRIZOATE MEGL/DIATRIZOA SOD 30 ML BTL PO ONE (00:54)
--- NOTE | 2019-08-12 02:09 | Diagnostic Imaging Report ---
EXAM: CT Abdomen and Pelvis WITHOUT contrast INDICATION: ^LLQ pain ^[id number] ^0126 COMPARISON: None. TECHNIQUE: Abdomen and pelvis were scanned utilizing a multidetector helical scanner from the lung base to the pubic symphysis without administration of IV contrast. Absence of intravenous contrast decreases sensitivity for detection of focal lesions and vascular pathology. Coronal and sagittal reformations were obtained. Routine protocol was performed. IV CONTRAST: None ORAL CONTRAST: None COMPLICATIONS: None RADIATION DOSE: Total DLP: 632 mGy*cm Estimated effective dose: (DLP x 0.015 x size factor) mSv CTDIvol has been reviewed. It is below the limits set by the Radiation Protocol Committee (RPC). Dose modulation, iterative reconstruction, and/or weight based adjustment of the mA/kV was utilized to reduce the radiation dose to as low as reasonably achievable. FINDINGS: LINES and TUBES: None. LOWER THORAX: Unremarkable HEPATOBILIARY: No focal hepatic lesions. No biliary ductal dilation. GALLBLADDER: Surgically absent. SPLEEN: No splenomegaly. PANCREAS: No focal masses or ductal dilatation. ADRENALS: No adrenal nodules KIDNEYS/URETERS: No hydronephrosis. No cystic or solid mass lesions. No stones. GI TRACT: Sigmoid diverticulosis. Short segment wall thickening of the proximal sigmoid colon with adjacent mesenteric inflammation. No evidence of bowel obstruction. Appendix is normal. PELVIC ORGANS/BLADDER: The uterus is surgically absent. The urinary bladder is mostly decompressed. LYMPH NODES: No lymphadenopathy. VESSELS: Unremarkable. PERITONEUM / RETROPERITONEUM: No free air or fluid. No drainable fluid collection. BONES: Unremarkable. SOFT TISSUES: Unremarkable. IMPRESSION: Acute uncomplicated sigmoid diverticulitis. Signed by: Doron Gann MD on 08/12/2019 2:06 AM
[2019-08-12 02:50] LABS: BILIRUBIN,URINE NEGATIVE (NEGATIVE); CLARITY,URINE CLEAR (CLEAR); COLOR,URINE YELLOW (YELLOW); KETONES,URINE NEGATIVE (NEGATIVE); LEUKOCYTE ESTERASE ,URINE NEGATIVE (NEGATIVE); NITRITE,URINE NEGATIVE (NEGATIVE); PROTEIN,URINE DIPSTICK 1+ (NEGATIVE); URINE UROBILINOGEN 0.2 mg/dL (0.2 - 1)
[2019-08-12 02:51] LABS: BACTERIA,URINE RARE /HPF; EPITHELIAL CELLS,URINE FEW /LPF; RBC,URINE 0-5 /HPF (0-5); WBC,URINE (MAN) 0-5 /HPF (0-5)
[2019-08-12 03:28] VITALS: BP 134/73
== END 2019-08-12 03:28 | disposition home or self-care (01) ==
LOC: ER 08-12 00:40
DX: K57.32 Diverticulitis of large intestine without perforation or abscess without bleeding (principal); R10.32 Left lower quadrant pain; I10 Essential (primary) hypertension; F32.9 Major depressive disorder, single episode, unspecified
CPT/HCPCS: 74176; 81001; 99282

== ENCOUNTER 2019-08-25 22:50 | Emergency (ER) | payer OTHER ==
[~2019-08-25] VITALS: Ht 147.3 cm; Wt 84.8 kg
[2019-08-25] MEDS ORDERED: SODIUM CHLORIDE 0.9% 1000ML 1,000 ML IV STA (23:05)
[2019-08-25] MEDS ORDERED: ONDANSETRON HCL INJ 2MG/ML 2ML 2 MG/ML VIAL IV STA (23:05)
[2019-08-25] MEDS ORDERED: MORPHINE SULFATE INJ 4 MG/ML INJ 1ML IV STA (23:05)
--- NOTE | 2019-08-25 23:13 | Emergency Department Note ---
History of Present Illnes History of Present Illness Chief Complaint: Abdominal Complaints History of Present Illness This is a 59 year old female recurrent abdominal pain. Historian: Patient Arrival Mode: Car Onset (how long ago): day(s) (3) Radiation: Reports abdomen Severity: moderate Onset quality: gradual Duration (how long): day(s) (3) Timing of current episode: constant Progression: worsening Chronicity: new Context: Denies recent illness, Denies recent surgery, Denies recent immobilization, Denies recent travel, Denies trauma/injury, Denies new medications, Denies hx of DVT/PE, Denies non-compliance w/ medications, Denies other Exacerbating factors: other (palpatoin) Associated symptoms: Reports nausea/vomiting Previous service: medications given, tests performed, re-evaluation Past Medical/Family History Physician Review I have reviewed the patient's past medical and family history. Any updates have been documented here. Past Medical History Past Medical History: Hypertension, Depression, Osteoarthritis Other Medical History: bORDERLINE DM Past Surgical History: Cholecysctectomy, Hysterectomy, Tubal Ligation, C- Section Other Surgery: CARPAL TUNNEL REPAIR BILATERALLY HEART CATH 12/28, NO STENT Social History Smoking Cessation: Never Smoker Alcohol Use: None Any Illegal Drug Use: No Other Last Tetanus: OOD Review of Systems Review of Systems Constitutional: Reports no symptoms EENTM: Reports no symptoms Cardiovascular: Reports no symptoms Respiratory: Reports no symptoms Gastrointestinal: Reports abdominal pain, Reports nausea Genitourinary: Reports no symptoms Musculoskeletal: Reports no symptoms Integumentary: Reports no symptoms Neurological: Reports no symptoms Psychological: Reports no symptoms Endocrine: Reports no symptoms Hematological/Lymphatic: Reports no symptoms Physical Exam Related Data Allergies: Coded Allergies: No Known Drug Allergies (Verified Allergy, Unknown, 07/14/18) Vital signs reviewed: Yes Physical Exam CONSTITUTIONAL Constitutional: Present morbidly obese HENT HENT: Present normocephalic, Present atraumatic, Present oropharynx clear/moist, Present nose normal HENT L/R: Present left ext ear normal, Present right ext ear normal EYES Eyes: Reports PERRL, Reports conjunctivae normal NECK Neck: Present ROM normal PULMONARY Pulmonary: Present effort normal, Present breath sounds normal CARDIOVASCULAR Cardiovascular: Present regular rhythm, Present heart sounds normal, Present capillary refill normal, Present normal rate GASTROINTESTINAL Abdominal: Present soft, Present tender (RLQ) GENITOURINARY Genitourinary: Present exam deferred SKIN Skin: Present warm, Present dry MUSCULOSKELETAL Musculoskeletal: Present ROM normal NEUROLOGICAL Neurological: Present alert, Present oriented x 3, Present no gross motor or sensory deficits PSYCHOLOGICAL Psychological: Present mood/affect normal, Present judgement normal Results Laboratory Lab results reviewed: Yes Imaging Imaging results reviewed: Yes Impressions [place] [address] Patient Name: NIGEL WILLSON MR #: [id number] : 1960 Age/Sex: 59/F Req #: [id number] Adm Physician: Ordered by: VIVI MITCHELL DO Report #: [id number] Location: ER Room/Bed: Procedure: [id number] CT/CT ABDOMEN/PELVIS W Exam Date: Exam Time: REPORT STATUS: Signed EXAMINATION: CT of the abdomen and pelvis with contrast. TECHNIQUE: Spiral CT images of the abdomen and pelvis were performed from the lung bases to the lesser trochanters after the intravenous administration of 100 cc of Isovue 370 and the oral administration of water. Coronal and sagittal reformatted images were obtained. COMPARISON: CT abdomen and pelvis without contrast 08/12/2019 CLINICAL HISTORY:Right lower quadrant pain for 3 days, worsening today, diagnosed with diverticulitis 08/12/2019 DISCUSSION: ABDOMEN/PELVIS: LOWER THORAX:Unremarkable. HEPATOBILIARY: No focal hepatic lesions. No intra or extrahepatic biliary ductal dilation. GALLBLADDER: Cholecystectomy clips. SPLEEN: No splenomegaly. PANCREAS: No focal masses or ductal dilatation. ADRENALS: No adrenal nodules. KIDNEYS/URETERS: No hydronephrosis, stones, or solid mass lesions. Moderate bilateral renal cortical scarring. PELVIC ORGANS/BLADDER: Bladder is unremarkable. Uterus is absent. No adnexal masses. PERITONEUM/RETROPERITONEUM: No free air or fluid. LYMPH NODES: No intra-abdominal, retroperitoneal, pelvic or inguinal lymphadenopathy. VESSELS: The celiac trunk,superior and inferior mesenteric and bilateral renal arteries are patent The portal, superior mesenteric and splenic veins are patent. GI TRACT: Descending and sigmoid colon diverticulosis. Interval moderate improvement in previously visualized wall thickening and surrounding inflammatory changes in the proximal sigmoid (series 2, image 68), consistent with improved diverticulitis. No foci of extra luminal air or adjacent well-defined enhancing fluid collections. No bowel dilation or evidence of obstruction. No pericecal or periappendiceal inflammatory changes Appendix is normal. Stomach is unremarkable. BONES AND SOFT TISSUE: No aggressive lytic lesions. No suspicious focal sclerotic lesions. Soft tissues are grossly unremarkable. IMPRESSION: 1. No acute abdominopelvic abnormalities. Specifically, no acute abnormal findings in the right lower quadrant to explain the patient's pain. Appendix is normal. 2. Improved proximal sigmoid uncomplicated diverticulitis when compared to CT dated 08/12/2019. Signed by: Dr. Travis Farrell M.D. on 08/26/2019 12:57 AM Dictated By: TRAVIS FARRELL MD Transcribed By: LÁZARO on 08/26/1956 COPY TO: VIVI MITCHELL DO~ Assessment & Plan Medical Decision Making MDM 59 yof presents with abdominal pain. CBC, CMP, UA and CTS ordered to r/o appendicitis, COVID-19 infection diverticulitis, UTI, kidney stone, perforated viscus, obstruction, ischemia, and biliary pathology Assessment & Plan Final Impression: (1) Abdominal pain Home Meds Reported Medications Leflunomide (LEFLUNOMIDE) 10 Mg Tablet, 10 MG PO DAILY 07/15/18 Bupropion Hcl (BUPROPION XL) 150 Mg Tab.er.24h, 150 MG PO DAILY 07/15/18 Fenofibrate (TRICOR) 145 Mg Tab, 145 MG PO DAILY 07/15/18 Pantoprazole Sodium* (PROTONIX) 40 Mg Tablet.dr, 40 MG PO DAILY 07/15/18 Metformin Hcl (METFORMIN HCL) 500 Mg Tablet, 500 MG PO DAILY 07/15/18 Lisinopril/Hydrochlorothiazide (LISINOPRIL-HCTZ 20-25 MG TAB) 1 Each Tablet, PO DAILY 07/15/18 Pravastatin Sodium (PRAVASTATIN SODIUM) 40 Mg Tablet, 40 MG PO DAILY 07/15/18 Atenolol (ATENOLOL) 25 Mg Tablet, 25 MG PO BID 07/15/18 Lisinopril (LISINOPRIL) 10 Mg Tablet, 20 MG PO DAILY@1700, #30 TAB 07/15/18 [Vascepa] No Conflict Check, 1 MG PO BID 07/15/18 Ergocalciferol (Vitamin D2) (VITAMIN D2) 50,000 Unit Capsule, 95500 UNITS PO UD TAKE ONE CAPSULE BY MOUTH ONE TIME PER WEEK. 07/15/18 Folic Acid (FOLIC ACID) 1 Mg Tablet, 1 MG PO DAILY 07/15/18 VIVI MITCHELL DO Aug 25, 2019 23:13
[2019-08-25 23:31] LABS: BILIRUBIN,URINE NEGATIVE (NEGATIVE); CLARITY,URINE CLEAR (CLEAR); COLOR,URINE YELLOW (YELLOW); KETONES,URINE TRACE (NEGATIVE); LEUKOCYTE ESTERASE ,URINE NEGATIVE (NEGATIVE); NITRITE,URINE NEGATIVE (NEGATIVE); PROTEIN,URINE DIPSTICK NEGATIVE (NEGATIVE); URINE UROBILINOGEN 0.2 mg/dL (0.2 - 1)
[2019-08-25 23:36] LABS: BASOPHILS # (AUTO) 0.1 (0.0-0.1); BASOPHILS % 0.9 % (0.0-1.0); EOSINOPHILS # (AUTO) 0.3 (0.0-0.4); EOSINOPHILS % 3.8 % (0.0-6.0); HEMATOCRIT 40.6 % (34.2-44.1); HEMOGLOBIN 13.6 g/dL (12.0-16.0); LYMPHOCYTES # (AUTO) 3.3 (1.0-3.2); LYMPHOCYTES % 44.6 % (18.0-39.1); MEAN CORPUSCULAR HEMOGLOBIN 30.6 pg (28-32); MEAN CORPUSCULAR HGB CONC 33.5 g/dL (31-35); MEAN CORPUSCULAR VOLUME 91.4 fL (81-99); MONOCYTES # (AUTO) 0.6 (0.2-0.8); MONOCYTES % 7.7 % (4.4-11.3); NEUTROPHILS # (AUTO) 3.2 (2.1-6.9); NEUTROPHILS % 42.7 % (38.7-80.0); PLATELET COUNT 209 x10e3/uL (140-360); RED BLOOD COUNT 4.44 x10e6/uL (3.6-5.1); RED CELL DISTRIBUTION WIDTH 12.9 % (11.7-14.4)
[2019-08-25 23:39] LABS: BACTERIA,URINE MODERATE /HPF; EPITHELIAL CELLS,URINE FEW /LPF; RBC,URINE 0-5 /HPF (0-5); WBC,URINE (MAN) 0-5 /HPF (0-5)
[2019-08-25 23:47] LABS: ALBUMIN 3.1 g/dL (3.5-5.0); ALBUMIN/GLOBULIN RATIO 0.8 (0.8-2.0); ANION GAP 12.8 mmol/L (8-16); CALCIUM 8.9 mg/dL (8.4-10.2); CREATININE, SERUM 1.09 mg/dL (0.57-1.11); POTASSIUM 3.8 mmol/L (3.5-5.1)
[2019-08-26] MEDS ORDERED: SODIUM CHLORIDE 0.9% 50ML 50 ML ONE (00:32)
[2019-08-26] MEDS ORDERED: IOPAMIDOL 370 MG/ML 200 ML INFUS..BTL INJ ONE (00:32)
--- NOTE | 2019-08-26 01:00 | Diagnostic Imaging Report ---
EXAMINATION: CT of the abdomen and pelvis with contrast. TECHNIQUE: Spiral CT images of the abdomen and pelvis were performed from the lung bases to the lesser trochanters after the intravenous administration of 100 cc of Isovue 370 and the oral administration of water. Coronal and sagittal reformatted images were obtained. COMPARISON: CT abdomen and pelvis without contrast 08/12/2019 CLINICAL HISTORY:Right lower quadrant pain for 3 days, worsening today, diagnosed with diverticulitis 08/12/2019 DISCUSSION: ABDOMEN/PELVIS: LOWER THORAX:Unremarkable. HEPATOBILIARY: No focal hepatic lesions. No intra or extrahepatic biliary ductal dilation. GALLBLADDER: Cholecystectomy clips. SPLEEN: No splenomegaly. PANCREAS: No focal masses or ductal dilatation. ADRENALS: No adrenal nodules. KIDNEYS/URETERS: No hydronephrosis, stones, or solid mass lesions. Moderate bilateral renal cortical scarring. PELVIC ORGANS/BLADDER: Bladder is unremarkable. Uterus is absent. No adnexal masses. PERITONEUM/RETROPERITONEUM: No free air or fluid. LYMPH NODES: No intra-abdominal, retroperitoneal, pelvic or inguinal lymphadenopathy. VESSELS: The celiac trunk,superior and inferior mesenteric and bilateral renal arteries are patent The portal, superior mesenteric and splenic veins are patent. GI TRACT: Descending and sigmoid colon diverticulosis. Interval moderate improvement in previously visualized wall thickening and surrounding inflammatory changes in the proximal sigmoid (series 2, image 68), consistent with improved diverticulitis. No foci of extra luminal air or adjacent well-defined enhancing fluid collections. No bowel dilation or evidence of obstruction. No pericecal or periappendiceal inflammatory changes Appendix is normal. Stomach is unremarkable. BONES AND SOFT TISSUE: No aggressive lytic lesions. No suspicious focal sclerotic lesions. Soft tissues are grossly unremarkable. IMPRESSION: 1. No acute abdominopelvic abnormalities. Specifically, no acute abnormal findings in the right lower quadrant to explain the patient's pain. Appendix is normal. 2. Improved proximal sigmoid uncomplicated diverticulitis when compared to CT dated 08/12/2019. Signed by: Dr. Jf Farrell M.D. on 08/26/2019 12:57 AM
[2019-08-26 01:14] VITALS: BP 172/77
--- NOTE | 2019-08-30 11:06 | NUR ---
Attempt to call pt with COVID results, no answer.
== END 2019-08-26 01:20 | disposition home or self-care (01) ==
LOC: ER 23:30
DX: R10.31 Right lower quadrant pain (principal); I10 Essential (primary) hypertension; F32.9 Major depressive disorder, single episode, unspecified; Z11.59 Encounter for screening for other viral diseases
CPT/HCPCS: 36415; 74177; 80053; 81001; 83690; 85025; 99284; J7030; Q9967; U0002

== ENCOUNTER 2020-05-17 10:28 | Emergency (ER) | payer OTHER ==
[~2020-05-17] VITALS: Ht 147.3 cm; Wt 84.8 kg
[2020-05-17 11:05] LABS: BASOPHILS # (AUTO) 0.1 (0.0-0.1); BASOPHILS % 0.6 % (0.0-1.0); EOSINOPHILS # (AUTO) 0.1 (0.0-0.4); EOSINOPHILS % 1.3 % (0.0-6.0); HEMATOCRIT 42.4 % (34.2-44.1); HEMOGLOBIN 14.1 g/dL (12.0-16.0); LYMPHOCYTES # (AUTO) 2.2 (1.0-3.2); LYMPHOCYTES % 23.1 % (18.0-39.1); MEAN CORPUSCULAR HEMOGLOBIN 31.3 pg (28-32); MEAN CORPUSCULAR HGB CONC 33.3 g/dL (31-35); MEAN CORPUSCULAR VOLUME 94.2 fL (81-99); MONOCYTES # (AUTO) 0.7 (0.2-0.8); MONOCYTES % 7.3 % (4.4-11.3); NEUTROPHILS # (AUTO) 6.4 (2.1-6.9); NEUTROPHILS % 67.3 % (38.7-80.0); PLATELET COUNT 234 x10e3/uL (140-360); RED CELL DISTRIBUTION WIDTH 13.4 % (11.7-14.4)
[2020-05-17 11:51] LABS: ALANINE AMINOTRANSFERASE 25 IU/L (0-55); ALBUMIN 3.3 g/dL (3.5-5.0); ALBUMIN/GLOBULIN RATIO 0.9 (0.8-2.0); ALKALINE PHOSPHATASE 58 IU/L (40-150); ANION GAP 14.2 mmol/L (8-16); BLOOD UREA NITROGEN 19 mg/dL (7-26); BUN/CREATININE RATIO 23 (6-25); CARBON DIOXIDE 26 mmol/L (22-29); CHLORIDE 103 mmol/L (98-107); CREATININE, SERUM 0.83 mg/dL (0.57-1.11); EST GLOMERULAR FILTRATION RATE > 60 ML/MIN (60-); GLUCOSE 96 mg/dL (74-118); POTASSIUM 4.2 mmol/L (3.5-5.1); SODIUM 139 mmol/L (136-145)
== END 2020-05-17 13:34 | disposition home or self-care (01) ==
LOC: ER 11:05
DX: R00.2 Palpitations (principal); I49.3 Ventricular premature depolarization; I10 Essential (primary) hypertension; F32.9 Major depressive disorder, single episode, unspecified
CPT/HCPCS: 36415; 71045; 80053; 84484; 85025; 93005; 99284

== ENCOUNTER 2020-12-12 12:40 | Emergency (ER) | payer OTHER ==
[~2020-12-12] VITALS: Ht 147.3 cm; Wt 84.8 kg
[2020-12-12] MEDS ORDERED: SODIUM CHLORIDE 0.9% 1000ML 1,000 ML IV STA (12:51)
[2020-12-12 13:52] LABS: BASOPHILS # (AUTO) 0.1 (0.0-0.1); BASOPHILS % 0.8 % (0.0-1.0); EOSINOPHILS # (AUTO) 0.1 (0.0-0.4); EOSINOPHILS % 0.8 % (0.0-6.0); HEMATOCRIT 41.4 % (34.2-44.1); HEMOGLOBIN 13.4 g/dL (12.0-16.0); LYMPHOCYTES # (AUTO) 1.5 (1.0-3.2); LYMPHOCYTES % 23.8 % (18.0-39.1); MEAN CORPUSCULAR HGB CONC 32.4 g/dL (31-35); MEAN CORPUSCULAR VOLUME 92.8 fL (81-99); MONOCYTES # (AUTO) 0.4 (0.2-0.8); MONOCYTES % 5.4 % (4.4-11.3); NEUTROPHILS # (AUTO) 4.5 (2.1-6.9); NEUTROPHILS % 68.9 % (38.7-80.0); PLATELET COUNT 200 x10e3/uL (140-360); RED BLOOD COUNT 4.46 x10e6/uL (3.6-5.1)
[2020-12-12 13:57] LABS: INR 0.88; PARTIAL THROMBOPLASTIN TIME 26.4 seconds (23.8-35.5); PROTHROMBIN TIME 12.6 seconds (11.9-14.5)
[2020-12-12 14:07] LABS: ALBUMIN 3.4 g/dL (3.5-5.0); ANION GAP 13.7 mmol/L (8-16); CALCIUM 8.2 mg/dL (8.4-10.2); CREATININE, SERUM 0.81 mg/dL (0.57-1.11); MAGNESIUM 1.7 MG/DL (1.3-2.1); POTASSIUM 3.7 mmol/L (3.5-5.1)
[2020-12-12 14:19] LABS: CREATINE KINASE MB 2.4 ng/mL (0-5.0)
[2020-12-12] MEDS ORDERED: SODIUM CHLORIDE 0.9% 50ML 50 ML ONE (14:40)
[2020-12-12] MEDS ORDERED: IOPAMIDOL 370 MG/ML 200 ML INFUS..BTL INJ ONE (14:40)
== END 2020-12-12 17:03 | disposition home or self-care (01) ==
LOC: ER 12:50
DX: R00.2 Palpitations (principal); F41.1 Generalized anxiety disorder; E11.65 Type 2 diabetes mellitus with hyperglycemia; I10 Essential (primary) hypertension; E78.5 Hyperlipidemia, unspecified; K21.9 Gastro-esophageal reflux disease without esophagitis; R94.31 Abnormal electrocardiogram [ECG] [EKG]
CPT/HCPCS: 36415; 71045; 71260; 80053; 82550; 82553; 83735; 83880; 84484; 85025; 85379; 85610; 85730; 93005; 99284; J7030; Q9967

== ENCOUNTER 2021-06-10 18:25 | Emergency (ER) | payer OTHER ==
[~2021-06-10] VITALS: Ht 147.3 cm; Wt 84.8 kg
[2021-06-10] MEDS ORDERED: IBUPROFEN 600 MG TAB PO STA (18:40)
== END 2021-06-10 19:31 | disposition home or self-care (01) ==
LOC: ER 18:41
DX: S93.491A Sprain of other ligament of right ankle, initial encounter (principal); X50.1XXA Overexertion from prolonged static or awkward postures, initial encounter; Y93.02 Activity, running; Y92.89 Other specified places as the place of occurrence of the external cause; I10 Essential (primary) hypertension; E11.9 Type 2 diabetes mellitus without complications; E78.5 Hyperlipidemia, unspecified; K21.9 Gastro-esophageal reflux disease without esophagitis; F41.9 Anxiety disorder, unspecified
CPT/HCPCS: 99283

== ENCOUNTER 2021-07-11 13:11 | Emergency (ER) | payer OTHER ==
[~2021-07-11] VITALS: Ht 147.3 cm; Wt 84.8 kg
== END 2021-07-11 14:32 | disposition home or self-care (01) ==
LOC: ER 13:21
DX: R23.3 Spontaneous ecchymoses (principal); I10 Essential (primary) hypertension; E11.9 Type 2 diabetes mellitus without complications; E78.5 Hyperlipidemia, unspecified; K21.9 Gastro-esophageal reflux disease without esophagitis; F41.9 Anxiety disorder, unspecified
CPT/HCPCS: 99283

== ENCOUNTER 2022-06-19 11:35 | Emergency (ER) | payer OTHER ==
[~2022-06-19] VITALS: Ht 147.3 cm; Wt 84.8 kg
[2022-06-19 11:40] VITALS: O2SAT 96
[2022-06-19] MEDS ORDERED: ACETAMINOPHEN 325 MG TAB PO ONE (12:00)
[2022-06-19] MEDS ORDERED: BENZONATATE 100 MG CAP PO ONE (12:00)
[2022-06-19 12:18] LABS: STREPTOCOCCUS GRP A ANTIGEN NEGATIVE (NEGATIVE)
[2022-06-19 13:17] LABS: CLARITY,URINE CLEAR (CLEAR); COLOR,URINE YELLOW (YELLOW); KETONES,URINE NEGATIVE (NEGATIVE); LEUKOCYTE ESTERASE ,URINE NEGATIVE (NEGATIVE); NITRITE,URINE NEGATIVE (NEGATIVE); PROTEIN,URINE DIPSTICK NEGATIVE (NEGATIVE); URINE UROBILINOGEN 0.2 mg/dL (0.2 - 1)
[2022-06-19] MEDS ORDERED: BENZONATATE200 MG PO (13:41)
[2022-06-19] MEDS ORDERED: AZITHROMYCIN250 MG PO (13:41)
[2022-06-19] MEDS ORDERED: VENTOLIN HFA18 GM INH (13:41)
== END 2022-06-19 14:02 | disposition home or self-care (01) ==
LOC: ER 11:39
DX: R05.9 Cough, unspecified (principal); J06.9 Acute upper respiratory infection, unspecified; B34.9 Viral infection, unspecified; R09.89 Other specified symptoms and signs involving the circulatory and respiratory systems; Z20.822 Contact with and (suspected) exposure to COVID-19
CPT/HCPCS: 71046; 81001; 83518; 87070; 99283; U0002